=== PATIENT | female | born 2000 | race Caucasian/White ===

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

== ENCOUNTER → 2020-01-10 | Outpatient (REF) | payer OTHER ==
[2020-01-10 17:03] LABS: HEMATOCRIT 38.1 % (36.0-47.0); HEMOGLOBIN 12.9 g/dl (12.0-15.5); MEAN CORPUSCULAR HEMOGLOBIN 31.9 pg (27.0-33.0); MEAN CORPUSCULAR HGB CONC 33.9 g/dl (32.0-36.5); MEAN CORPUSCULAR VOLUME 94.3 fl (80.0-96.0); PLATELET COUNT, AUTOMATED 258 10^3/uL (150-450); RED BLOOD COUNT 4.04 10^6/uL (4.00-5.40); WHITE BLOOD COUNT 10.7 10^3/uL (4.0-10.0)
[2020-01-10 17:27] LABS: AMORPHOUS SEDIMENT MODERATE (NEGATIVE); APPEARANCE, URINE CLOUDY (CLEAR); BACTERIA, URINE AUTO NEGATIVE (NEGATIVE); BILIRUBIN, URINE AUTO NEGATIVE (NEGATIVE); BLOOD, URINE BLOOD NEGATIVE (NEGATIVE); COLOR, URINE YELLOW (YELLOW); GLUCOSE, URINE (UA) AUTO NEGATIVE (NEGATIVE); KETONE, URINE AUTO TRACE mg/dL (NEGATIVE); LEUKOCYTE ESTERASE, URINE AUTO NEGATIVE (NEGATIVE); MUCUS, URINE SMALL (NEGATIVE); NITRITE, URINE AUTO NEGATIVE (NEGATIVE); PROTEIN, URINE AUTO NEGATIVE (NEGATIVE); RBC, URINE AUTO 4 /HPF (0-3); SPECIFIC GRAVITY URINE AUTO 1.015 (1.002-1.035); SQUAMOUS EPITHELIAL CELL UR AU 2 /HPF (0-6); UROBILINOGEN, URINE AUTO 0.2 mg/dL (0.0-2.0); WBC, URINE AUTO 0 /HPF (0-3)
[2020-01-10 18:57] LABS: HEMOGLOBIN A1c 4.9 %
[2020-01-11 01:27] LABS: CHLAMYDIA DNA AMPLIFICATION NEGATIVE (NEGATIVE); GC DNA AMPLIFICATION NEGATIVE (NEGATIVE)
[2020-01-13 10:55] LABS: HEPATITIS B SURFACE ANTIBODY POSITIVE (POSITIVE)
[2020-01-13 11:34] LABS: HEPATITIS C VIRUS ABY INDEX 0.3 INDEX (<0.8); HIV 1&2 SCREEN CENTAUR NEGATIVE (NEGATIVE)
== END ==
LOC: M SFHCPLAZ 14:27
DX: O09.32 Supervision of pregnancy with insufficient antenatal care, second trimester (principal); Z00.00 Encounter for general adult medical examination without abnormal findings

== ENCOUNTER → 2020-03-24 | Outpatient (CLI) | payer OTHER ==
[~2020-03-24] MED LIST: APPROPRIATE DILUENT As Ordered ONE; BETAMETHASONE SOLUSPAN 6MG/ML 5ML VIAL (J0702 PER 3MG) As Ordered ONE; BETAMETHASONE SOLUSPAN 6MG/ML 5ML VIAL (J0702 PER 3MG) ONE; PRENTAB9 PO; ceFAZolin 2 GM/D5W 50 ML IV BAG (J0690 PER 500MG) As Ordered ONE; ceFAZolin 2 GM/D5W 50 ML IV BAG (J0690 PER 500MG) ONE
== END ==
LOC: M LDO 05:10
PROVIDERS: ATTEND Advanced Practice Midwife
DX: O47.03 False labor before 37 completed weeks of gestation, third trimester (principal); Z3A.34 34 weeks gestation of pregnancy
CPT/HCPCS: 96372; 96374; 96376; J0690; J0702

== ENCOUNTER 2020-04-13 17:23 | Outpatient (CLI) | payer OTHER ==
[~2020-04-13] VITALS: Ht 160 cm; Wt 71.2 kg
[2020-04-13 17:37] VITALS: BP 114/65
[2020-04-13 18:01] VITALS: BP 130/78
[2020-04-13] MEDS ORDERED: PRENTAB9 PO (18:11)
[2020-04-13 18:35] VITALS: BP 124/73
[2020-04-13] MEDS ORDERED: LR 1,000 ML IV ONE (19:15)
[2020-04-13 19:47] VITALS: BP 107/58
[2020-04-14 00:54] VITALS: BP 110/62
[2020-04-14 02:37] VITALS: BP 106/63
[2020-04-14 03:37] VITALS: BP 104/64
[2020-04-14 04:36] VITALS: BP 94/54
== END 2020-04-14 09:10 | disposition home or self-care (01) ==
LOC: M LDO 17:23
PROVIDERS: ATTEND Obstetrics & Gynecology
DX: O47.1 False labor at or after 37 completed weeks of gestation (principal); Z3A.37 37 weeks gestation of pregnancy

== ENCOUNTER 2020-04-17 00:34 | Outpatient (CLI) | payer OTHER ==
[~2020-04-17] VITALS: Ht 160 cm; Wt 74.4 kg
[~2020-04-17 00:34] MED LIST changes: -APPROPRIATE DILUENT As Ordered ONE; -BETAMETHASONE SOLUSPAN 6MG/ML 5ML VIAL (J0702 PER 3MG) As Ordered ONE; -BETAMETHASONE SOLUSPAN 6MG/ML 5ML VIAL (J0702 PER 3MG) ONE; -ceFAZolin 2 GM/D5W 50 ML IV BAG (J0690 PER 500MG) As Ordered ONE; -ceFAZolin 2 GM/D5W 50 ML IV BAG (J0690 PER 500MG) ONE
[2020-04-17 00:57] VITALS: BP 104/67
[2020-04-17] MEDS ORDERED: LR 1,000 ML IV SCH (01:30)
[2020-04-17] MEDS ORDERED: ceFAZolin SOD 2 GM in IV 1 EA IV ONE (01:30)
[2020-04-17 02:14] LABS: BASO # 0.1 10^3/uL (0.0-0.2); BASO % 0.6 % (0.0-1.0); EOS # 0.1 10^3/uL (0.0-0.5); EOS % 0.8 % (0.0-3.0); HEMATOCRIT 33.2 % (36.0-47.0); HEMOGLOBIN 11.2 g/dl (12.0-15.5); LYMPH # 2.6 10^3/uL (1.5-5.0); LYMPH % 30.9 % (24.0-44.0); MEAN CORPUSCULAR HEMOGLOBIN 30.2 pg (27.0-33.0); MEAN CORPUSCULAR HGB CONC 33.7 g/dl (32.0-36.5); MEAN CORPUSCULAR VOLUME 89.5 fl (80.0-96.0); MONO # 0.7 10^3/uL (0.0-0.8); MONO % 7.7 % (0.0-5.0); NEUTROPHILS % 59.6 % (36.0-66.0); PLATELET COUNT, AUTOMATED 207 10^3/uL (150-450); RED BLOOD COUNT 3.71 10^6/uL (4.00-5.40); WHITE BLOOD COUNT 8.4 10^3/uL (4.0-10.0)
[2020-04-17 02:25] VITALS: BP 126/58
[2020-04-17 02:31] LABS: APPEARANCE, URINE CLEAR (CLEAR); BACTERIA, URINE AUTO NEGATIVE (NEGATIVE); BILIRUBIN, URINE AUTO NEGATIVE (NEGATIVE); BLOOD, URINE BLOOD NEGATIVE (NEGATIVE); COLOR, URINE YELLOW (YELLOW); GLUCOSE, URINE (UA) AUTO NEGATIVE (NEGATIVE); KETONE, URINE AUTO 1+ mg/dL (NEGATIVE); LEUKOCYTE ESTERASE, URINE AUTO 2+ (NEGATIVE); MUCUS, URINE SMALL (NEGATIVE); NITRITE, URINE AUTO NEGATIVE (NEGATIVE); PROTEIN, URINE AUTO NEGATIVE (NEGATIVE); RBC, URINE AUTO 1 /HPF (0-3); SPECIFIC GRAVITY URINE AUTO 1.011 (1.002-1.035); SQUAMOUS EPITHELIAL CELL UR AU 2 /HPF (0-6); WBC, URINE AUTO 6 /HPF (0-3)
[2020-04-17 03:47] VITALS: BP 101/52
== END 2020-04-17 06:03 | disposition home or self-care (01) ==
LOC: M LDO 00:34
PROVIDERS: ATTEND Obstetrics & Gynecology
DX: O47.1 False labor at or after 37 completed weeks of gestation (principal); Z3A.37 37 weeks gestation of pregnancy
CPT/HCPCS: 59025; 81001; 85025; 87086; 96365; 96375; J0690